=== PATIENT | female | born 1965 | race Caucasian/White ===

== ENCOUNTER → 2023-05-30 | Emergency (ER) | payer SELFPAY ==
[~2023-05-30] MED LIST: KETOROLAC 30 MG/ML INJ ONE
--- OUTSIDE RECORDS SUMMARY | 2023-05-30 15:25 | XMS REPORT | Continuity of Care Document ---
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 Role Phone Hunter_Des Attending Clinician Unavailable DEBBIE Attending Clinician Unavailable Lida Bernal Attending Clinician [phone] Jeny Watkins MD Attending Clinician Pob1, Acute Care Clinic Attending Clinician Unav ailable Nguyen Admitting Clinician Unavailable DEBBIE Admitting Clinician Unavailable Payers Payer Name Policy Type Policy Number Effective Date Expirati on Date Source Problems Condition Name Condition Details Condition Category Status Onset Date Resolution Date Last Treatment Date Treating Clinician Comments Source Asthma Asthma Problem Active 10-15 00:00: 00 [facility] Expiratory wheezing Expiratory Wheezing Problem Active 08-11 00:00: 00 [facility] Acute bronchitis Acute Bronchitis Problem Active 08-11 00:00: 00 [facility] Allergies, Adverse Reactions, Alerts Allergy Name Allergy Type Status Severity Reaction(s) Onset Date Inactive Date Treating Clinician Comments Source NO KNOWN ALLERGIE S Drug Class Active [facility] Social History Social Habit Start Date Stop Date Quantity Comments Source Sex Assigned At [facility] Tobacco use and exposure 2019-10-20 00:00:00 2019-10-20 00:00:00 Never used [facility] Smoking Status Start Date Stop Date Source Current every day smoker 2019-10-20 00:00:00 [facility] Medications Ordered Medication Name Filled Medication Name Start Date Stop Date Current Medication? Ordering Clinician Indication Dosage Frequency Signature (SIG) Comments Components Source Solu-Medrol (PF) 125 mg/2 mL solution for injectionTa ke 125 mg by injection route as directed for 1 day. Solu-Medrol (PF) 125 mg/2 mL solution for injectionTa ke 125 mg by injection route as directed for 1 day. 10-15 14:20: 00 No Solu-Medro l (PF) 125 mg/2 mL solution for injectionT naresh 125 mg by injection route as directed for 1 day. [facility] albuterol 90 mcg/actuati on inhaler 10-19 20:55: 39 Yes 2{puff} Inhale 2 Puffs every 6 (six) hours as needed. [facility] albuterol 90 mcg/actuati on inhaler 10-19 20:55: 39 Yes 2{puff} Inhale 2 Puffs every 6 (six) hours as needed. [facility] albuterol 90 mcg/actuati on inhaler 10-19 20:55: 39 Yes 2{puff} Inhale 2 Puffs every 6 (six) hours as needed. [facility] albuterol 90 mcg/actuati on inhaler 10-19 20:55: 39 Yes 2{puff} Inhale 2 Puffs every 6 (six) hours as needed. [facility] beclomethas one dipropionat e (QVAR) 80 mcg/actuati on inhaler 10-19 00:00: 00 Yes [id number] 2{puff} Inhale 2 Puffs 2 (two) times daily. [facility] bromphenira mine-pseudo ephedrine-D M (BROMFED DM) 2-30-10 mg/5 mL syrup 10-19 00:00: 00 Yes [id number] 5mL Take 5 mL by mouth 4 (four) times daily as needed for Congestion /Allergies or Cold symptoms. [facility] azithromyci n 250 mg tablet 10-19 00:00: 00 Yes [id number] 250mg Take 1 tablet by mouth daily. Take 500 mg day 1, then 250 mg days 2 to 5. [facility] beclomethas one dipropionat e (QVAR) 80 mcg/actuati on inhaler 10-19 00:00: 00 Yes [id number] 2{puff} Inhale 2 Puffs 2 (two) times daily. [facility] bromphenira mine-pseudo ephedrine-D M (BROMFED DM) 2-30-10 mg/5 mL syrup 10-19 00:00: 00 Yes [id number] 5mL Take 5 mL by mouth 4 (four) times daily as needed for Congestion /Allergies or Cold symptoms. [facility] azithromyci n 250 mg tablet 10-19 00:00: 00 Yes [id number] 250mg Take 1 tablet by mouth daily. Take 500 mg day 1, then 250 mg days 2 to 5. [facility] beclomethas one dipropionat e (QVAR) 80 mcg/actuati on inhaler 10-19 00:00: 00 Yes [id number] 2{puff} Inhale 2 Puffs 2 (two) times daily. [facility] bromphenira mine-pseudo ephedrine-D M (BROMFED DM) 2-30-10 mg/5 mL syrup 10-19 00:00: 00 Yes [id number] 5mL Take 5 mL by mouth 4 (four) times daily as needed for Congestion /Allergies or Cold symptoms. [facility] azithromyci n 250 mg tablet 10-19 00:00: 00 Yes [id number] 250mg Take 1 tablet by mouth daily. Take 500 mg day 1, then 250 mg days 2 to 5. [facility] beclomethas one dipropionat e (QVAR) 80 mcg/actuati on inhaler 10-19 00:00: 00 Yes [id number] 2{puff} Inhale 2 Puffs 2 (two) times daily. [facility] bromphenira mine-pseudo ephedrine-D M (BROMFED DM) 2-30-10 mg/5 mL syrup 10-19 00:00: 00 Yes [id number] 5mL Take 5 mL by mouth 4 (four) times daily as needed for Congestion /Allergies or Cold symptoms. [facility] azithromyci n 250 mg tablet 10-19 00:00: 00 Yes [id number] 250mg Take 1 tablet by mouth daily. Take 500 mg day 1, then 250 mg days 2 to 5. [facility] albuterol sulfate 2.5 mg/3 mL (0.083 %) solution for nebulizatio n Inhale 3 mL 3 times a day by nebulizatio n route as directed for 30 days. albuterol sulfate 2.5 mg/3 mL (0.083 %) solution for nebulizatio n Inhale 3 mL 3 times a day by nebulizatio n route as directed for 30 days. No 3mL TID albuterol sulfate 2.5 mg/3 mL (0.083 %) solution for nebulizati on Inhale 3 mL 3 times a day by nebulizati on route as directed for 30 days. [facility] albuterol sulfate HFA 90 mcg/actuati on aerosol inhaler INHALE 2 PUFFS BY MOUTH EVERY 4 HOURS NEEDED FOR WHEEZING albuterol sulfate HFA 90 mcg/actuati on aerosol inhaler INHALE 2 PUFFS BY MOUTH EVERY 4 HOURS NEEDED FOR WHEEZING No albuterol sulfate HFA 90 mcg/actuat ion aerosol inhaler INHALE 2 PUFFS BY MOUTH EVERY 4 HOURS NEEDED FOR WHEEZING [facility] prednisone 20 mg tablet TAKE 2 TABLETS BY MOUTH EVERY DAY FOR 7 DAYS prednisone 20 mg tablet TAKE 2 TABLETS BY MOUTH EVERY DAY FOR 7 DAYS No prednisone 20 mg tablet TAKE 2 TABLETS BY MOUTH EVERY DAY FOR 7 DAYS [facility] Qvar RediHaler 80 mcg/actuati on HFA breath activated aerosol INHALE 2 PUFFS PO BID. Qvar RediHaler 80 mcg/actuati on HFA breath activated aerosol INHALE 2 PUFFS PO BID. No Qvar RediHaler 80 mcg/actuat ion HFA breath activated aerosol INHALE 2 PUFFS PO BID. [facility] Solu-Medrol (PF) 125 mg/2 mL solution for injection Take 125 mg by injection route as directed for 1 day. Solu-Medrol (PF) 125 mg/2 mL solution for injection Take 125 mg by injection route as directed for 1 day. No 125mg Solu-Medro l (PF) 125 mg/2 mL solution for injection Take 125 mg by injection route as directed for 1 day[facility] Vital Signs Vital Name Observation Time Observation Value Comments S ource BP Diastolic 2020-10-15 00:00:00 63 mm[Hg] [facility] Height 2020-10-15 00:00:00 66 [in_i] [facility] BMI (Body Mass Index) 2020-10-15 00:00:00 27.3 kg/m2 [facility] BP Systolic 2020-10-15 00:00:00 127 mm[Hg] [facility] Body Weight 2020-10-15 00:00:00 2704 [oz_av] [facility] Systolic blood pressure 2019-10-20 20:38:00 128 mm[Hg] [facility] Diastolic blood pressure 2019-10-20 20:38:00 79 mm[Hg] [facility] Heart rate 2019-10-20 20:38:00 88 /min [facility] Body temperature 2019-10-20 20:38:00 36.78 [facility] Respiratory rate 2019-10-20 20:38:00 20 /min [facility] Body height 2019-10-20 20:38:00 165.1 cm [facility] Body weight 2019-10-20 20:38:00 77.111 kg [facility] BMI 2019-10-20 20:38:00 28.29 kg/m2 [facility] Oxygen saturation in Arterial blood by Pulse oximetry 2019-10-20 20:38:00 94 /min [facility] Procedures Procedure Date / Time Performed Performing Clinicia n Source XR, chest, 2 view 2020-10-15 00:00:00 [facility] Tubal Ligation 2003-05-31 00:00:00 [facility] Appendectomy [facility] Plan of Care Planned Activity Planned Date Details Comments Source Instructions [facility] Encounters Start Date/Time End Date/Time Encounter Type Admission Type Attending Clinicians Care Facility Care Department Encounter ID Source 2023-02-16 00:00:00 2023-02-16 00:00:00 Outpatient L_Pena [facility] [id number] 2020-10-15 03:43:00 2020-10-15 03:43:00 Outpatient [place] [facility] [id number] [facility] 2020-10-15 00:00:00 2020-10-15 00:00:00 Outpatient Lida Bernal [facility] [id number] 2020-10-15 00:00:00 2020-10-15 00:00:00 Tessy Carrie hannon, [facility]-: [address] [place] [address], [address], [place] [address] , Ph. [facility] [id number] [facility] 2020-06-20 00:00:00 2020-06-20 00:00:00 Telephone [facility]y [facility] .[id number] [facility] 2020-06-17 00:00:00 2020-06-17 00:00:00 Refill [facility]y [facility] .114 [id number] [facility] 2019-10-24 00:00:00 2019-10-24 00:00:00 Telephone Jeny Watkins [facility] Office [address] ..[id number] [facility] 2019-10-20 15:29:43 2019-10-20 16:02:58 Urgent Care Pob1, Acute Care Clinic Jeny Watkins [facility] [id number] [facility] 2019-10-20 15:40:00 2019-10-20 15:40:00 Outpatient R [facility] [id number] [facility]
--- NOTE | 2023-05-30 16:54 | RAD REPORT ---
EXAM DESCRIPTION: US - Extrem Venous W Compress Ryan - 05/30/2023 4:34 pm CLINICAL HISTORY: SWELLING Bilateral leg edema and swelling. COMPARISON: <Comparisons> TECHNIQUE: Real-time sonographic interrogation of the left and right lower extremity deep venous sys tems was performed. FINDINGS: Normal compressibility, flow augmentation, phasic flow and spontaneous flow is identified in both the left and right lower extremity deep venous systems. IMPRESSION: No sonographic evidence of left or right lower extremity deep venous thrombosis.
--- NOTE | 2023-05-30 17:14 | EDPHYS ---
Physician Documentation [facility] Name: Mariela Martin Age: 58 yrs Sex: Female : 1965 Arrival Date: 05/30/2023 Time: 15:22 Bed DX4 Private MD: ED Physician Jerzy Vann HPI: 05/30 16:50 This 58 yrs old Female presents to ER via Ambulatory with complaints of Possible blood jh7 clot. 16:50 Onset: The symptoms/episode began/occurred 3 day(s) ago. Associated signs and symptoms: jh7 Pertinent negatives: fever. Patient reports aching in bilateral calves for 3 weeks worsening over the past 3 days. Reports mild swelling to her right calf with muscle spasm present. Sent by urgent care to rule out DVT. No significant PMH.. Historical: - Allergies: 16:53 No Known Allergies; hb ROS: 16:50 Constitutional: Negative for fever, chills, and weight loss, Cardiovascular: Negative jh7 for chest pain, palpitations, and edema, Respiratory: Negative for shortness of breath, cough, wheezing, and pleuritic chest pain, Abdomen/GI: Negative for abdominal pain, nausea, vomiting, diarrhea, and constipation, Skin: Negative for injury, rash, and discoloration, Neuro: Negative for headache, weakness, numbness, tingling, and seizure, 16:50 MS/extremity: Positive for swelling, tenderness, of the R calf, 16:50 All other systems are negative, Exam: 16:50 Constitutional: This is a well developed, well nourished patient who is awake, alert, jh7 and in no acute distress. Head/Face: Normocephalic, atraumatic. Cardiovascular: Regular rate and rhythm with a normal S1 and S2. No gallops, murmurs, or rubs. Normal PMI, no JVD. No pulse deficits. Respiratory: Lungs have equal breath sounds bilaterally, clear to auscultation and percussion. No rales, rhonchi or wheezes noted. No increased work of breathing, no retractions or nasal flaring. Abdomen/GI: Soft, non-tender, with normal bowel sounds. No distension or tympany. No guarding or rebound. No evidence of tenderness throughout. Skin: Warm, dry with normal turgor. Normal color with no rashes, no lesions, and no evidence of cellulitis. Neuro: Awake and alert, GCS 15, oriented to person, place, time, and situation. Motor strength 5/5 in all extremities. Sensory grossly intact. Normal gait. 16:50 Musculoskeletal/extremity: ROM: full active range of motion, in the bilateral lower extremities, Pain in right calf with dorsiflexion of foot, Circulation is intact in all extremities. Pulses: are normal with no appreciated deficits, Perfusion: the extremity is normally perfused throughout, pink, warm, with brisk capillary refill, Sensation intact. DVT Exam: no appreciated bluish discoloration, no erythema, no increased warmth, pain, of the right leg, of the left leg, Mild pain on the left, moderate on the right, swelling, that is mild, of the right leg, Varicose veins present in bilateral lower extremities.. Vital Signs: 15:55 BP 136 / 86; Pulse 88; Resp 16; Temp 98.3; Pulse Ox 100% on R/A; Weight 79.38 kg; hb Height 5 ft. 5 in. ; Pain 8/10; 15:55 Body Mass Index 29.12 (79.38 kg, 165.1 cm) hb 15:55 Pain Scale: Adult hb MDM: 15:53 Patient medically screened. [facility] 17:15 Differential diagnosis: DVT, varicose veins, muscle spasm, calf strain. Data reviewed: [facility] vital signs, nurses notes, radiologic studies, ultrasound. I considered the following discharge prescriptions or medication management in the emergency department Medications were administered in the Emergency Department. See MAR. Counseling: I had a detailed discussion with the patient and/or guardian regarding the historical points, exam findings, and any diagnostic results supporting the discharge/admit diagnosis, to return to the emergency department if symptoms worsen or persist or if there are any questions or concerns that arise at home. Response to treatment: the patient's symptoms have mildly improved after treatment. 17:15 Special discussion: Vies patient to take medication as directed, apply heat, and jh elevate lower extremities at home. PCP follow-up advised.. 05/30 15:30 Order name: Extrem Venous W Compression Ryan US; Complete Time: 17:06 la1 Administered Medications: 17:10 Drug: Ketorolac IM 60 mg IM once Route: IM; Site: left deltoid; bp 17:10 Follow up: Response: No adverse reaction bp Disposition: 05/31 08:56 Co-signature as Attending Physician, Jerzy Vann MD I reviewed the patient's care rn provided by the Advanced Practice Provider and agree with the diagnosis and treatment plan. Disposition Summary: 05/30/23 17:13 Discharge Ordered Notes: Location: Home [facility] Problem: new 7 Symptoms: are unchanged jh7 Condition: Stable jh7 Diagnosis - Muscle spasm of calf 7 Followup: [facility] - With: Private Physician - When: 2 - 3 days - Reason: Recheck today's complaints Discharge Instructions: - Discharge Summary Sheet [facility] - Leg Cramps [facility] - Muscle Cramps and Spasms [facility] - Heat Therapy [facility] Forms: - Work release form hb - Medication Reconciliation Form [facility] - Thank You Letter [facility] - Patient Portal Instructions [facility] - Leadership Thank You Letter [facility] Prescriptions: - Naprosyn 500 mg Oral Tablet - take 1 tablet ORAL route 2 times per day take with food; 30 tablet; Refills: 0, [facility] Product Selection Permitted - Zanaflex 4 mg Oral Tablet - take 1 tablet ORAL route every 8 hours As needed; 20 tablet; Refills: 0, jh7 Product Selection Permitted Signatures: Dispatcher [employer] EDJerzy Raphael MD MD rn Baxter, Heather, RN RN hb Peltier, Brian, RN RN bp Hadash, Jennifer, FNP [employer] [facility] Corrections: (The following items were deleted from the chart) 05/30 17:44 16:50 Musculoskeletal/extremity: ROM: full active range of motion, in the bilateral [facility] lower extremities, Pain in right calf with dorsiflexion of foot, Circulation is intact in all extremities. Pulses: are normal with no appreciated deficits, Perfusion: the extremity is normally perfused throughout, pink, warm, with brisk capillary refill, Sensation intact. DVT Exam: no appreciated bluish discoloration, no erythema, no increased warmth, pain, of the right leg, of the left leg, Mild pain on the left, moderate on the right, swelling, that is mild, of the right leg, [facility]
--- NOTE | 2023-05-30 17:14 | ER ---
Nurse's Notes [facility] Name: Mariela Martin Age: 58 yrs Sex: Female : 1965 Arrival Date: 05/30/2023 Time: 15:22 Bed DX4 Private MD: Diagnosis: Muscle spasm of calf Presentation: 05/30 15:55 Chief complaint: BLE pain x 3 weeks. Coronavirus screen: At this time, the client does hb not indicate any symptoms associated with coronavirus-19. Ebola Screen: No symptoms or risks identified at this time. Initial Sepsis Screen: Does the patient meet any 2 criteria? No. Patient's initial sepsis screen is negative. Does the patient have a suspected source of infection? No. Patient's initial sepsis screen is negative. Risk Assessment: Do you want to hurt yourself or someone else? Patient reports no desire to harm self or others. Onset of symptoms was May 09, 2023. 15:55 Method Of Arrival: Ambulatory hb 15:55 Acuity: CRISTINE 3 hb Historical: - Allergies: 16:53 No Known Allergies; hb Vital Signs: 15:55 BP 136 / 86; Pulse 88; Resp 16; Temp 98.3; Pulse Ox 100% on R/A; Weight 79.38 kg; hb Height 5 ft. 5 in. ; Pain 8/10; 15:55 Body Mass Index 29.12 (79.38 kg, 165.1 cm) hb 15:55 Pain Scale: Adult hb ED Course: 15:24 Patient arrived in ED. ts1 15:53 Marsha Valladares FNP [facility] 15:53 Jerzy Vann MD is Attending Physician. 7 16:35 Extrem Venous W Compression Ryan US In Process Unspecified. EDMS 16:51 Triage completed. hb 16:54 Arm band placed on. hb 17:03 Eligio Medeiros, RN is Primary Nurse. bp Administered Medications: 17:10 Drug: Ketorolac IM 60 mg IM once Route: IM; Site: left deltoid; bp 17:10 Follow up: Response: No adverse reaction bp Outcome: 17:13 Discharge ordered by . jh7 17:40 Patient left the ED. hb Signatures: Dispatcher [employer] EDID Yanci Doe RN RN Eligio Medeiros, RN RN bp Marsha Valladares, MOLDING ROOM SUPERVISOR MOLDING ROOM SUPERVISOR jh7 Katherine Puga, JORGE L PAS ts1
[2023-05-30 17:47] VITALS: BP 136/86; TEMP 98.3; O2SAT 100
== END ==
LOC: ER 15:22
DX: M62.838 Other muscle spasm (principal)
CPT/HCPCS: 93970; 96372; 99283